=== PATIENT | male | born 1960 | race Caucasian/White ===

== ENCOUNTER 2021-06-07 20:40 | Emergency (ER) | payer MEDICAID ==
[2021-06-07] MEDS ORDERED: amLODIPine 5 MG Tab PO ONE (21:39)
[2021-06-07] MEDS ORDERED: Ondansetron 4 MG Tab.DIS PO ONE (21:59)
--- NOTE | 2021-06-07 22:05 | EDM.PDOC ---
ED HPI GENERAL MEDICAL PROBLEM - General Chief Complaint: General Stated Complaint: HIGH BP Time Seen by Provider: 06/07/21 21:09 Source of Information: Reports: Patient, Family History Limitations: Reports: No Limitations - History of Present Illness INITIAL COMMENTS - FREE TEXT/NARRATIVE: Is a 60-year-old male presenting to the ED with concerns of increased blood pressure, dizziness, headache, nausea and vomiting. The patient was in his usual state of health but today was feeling little more dizzy. He has been having episodes of dizziness on and off for last several weeks. He really has not had much in the way of an appetite but his gave him some pretzels to eat before taking his nighttime medicines. They checked his blood pressure and found it to be elevated prompting him to come in for evaluation. Patient does report that he drank a fair amount of rum last night but denies any alcohol today. He normally is seen at the [facility] by Bucky Grossman MD. He takes metoprolol XR 25 mg daily and lisinopril 10 mg twice daily. He previously been on Zestoretic 10/12.5 mg twice daily. He has developed a cough since being on the lisinopril. He states that since November he has numbers have been running really well, but his mentions that over the last several weeks he has had increasing episodes of the dizziness. He states that he is very active bicycling every day. He does recall when they were previously trying to treat his blood pressure and he was on a lot of different medications that he could barely get off the couch. He denies any fever, chills, cough or shortness of breath, constipation or diarrhea. - Related Data Allergies Allergy/AdvReac Type Severity Reaction Status Date / Time No Known Allergies Allergy Verified 05/12/15 20:10 Home Meds: Home Meds Aspirin [[place] Aspirin] 81 mg PO BEDTIME 06/07/21 [History] Metoprolol Succinate [Toprol XL] 25 mg PO DAILY 06/07/21 [History] amLODIPine [Norvasc] 10 mg PO DAILY 30 Days #60 tab 06/07/21 [Rx] atorvaSTATin [Lipitor] 40 mg PO BEDTIME 06/07/21 [History] lisinopriL [Lisinopril] 10 mg PO BID 06/07/21 [History] Labetalol [Normodyne] 100 mg PO BID 30 Days #60 tab 06/08/21 [Rx] Past Medical History Cardiovascular History: Reports: Afib, CAD, High Cholesterol, Hypertension, [place], Stents Other Cardiovascular History: stent placed Genitourinary History: Reports: Renal Calculus Psychiatric History: Reports: Anxiety, Depression Dermatologic History: Reports: Eczema, Psoriasis - Infectious Disease History Infectious Disease History: Reports: Chicken Pox, Mumps - Past Surgical History Cardiovascular Surgical History: Reports: Other (See Below) Other Cardiovascular Surgeries/Procedures: stents Social & Family History - Tobacco Use Tobacco Use Status *Q: Never Tobacco User - Alcohol Use Date of Last Drink: 06/06/21 ED ROS GENERAL - Review of Systems Review Of Systems: See Below Constitutional: Reports: Diaphoresis, Decreased Appetite HEENT: Reports: No Symptoms Respiratory: Reports: No Symptoms Cardiovascular: Reports: No Symptoms Endocrine: Reports: No Symptoms GI/Abdominal: Reports: Nausea, Vomiting Musculoskeletal: Reports: No Symptoms Skin: Reports: No Symptoms Neurological: Reports: Headache, Tremors Psychiatric: Reports: Anxiety Hematologic/Lymphatic: Reports: No Symptoms Immunologic: Reports: No Symptoms ED EXAM, GENERAL - Physical Exam Exam: See Below Exam Limited By: No Limitations General Appearance: Alert, Anxious, Mild Distress Eye Exam: Bilateral Eye: EOMI, PERRL Throat/Mouth: Normal Inspection, Normal Lips, Normal Oropharynx, Normal Voice, No Airway Compromise Head: Atraumatic, Normocephalic Neck: Normal Inspection, Supple, Non-Tender, Full Range of Motion. No: Carotid Bruit, Lymphadenopathy (R), Lymphadenopathy (L), Tender Lateral, Tender Midline Respiratory/Chest: No Respiratory Distress, Lungs Clear, Normal Breath Sounds Cardiovascular: Normal Peripheral Pulses, Regular Rate, Rhythm, No Murmur, Tachycardia Peripheral Pulses: 2+: Radial (L), Radial (R), Posterior Tibial (L), Posterior Tibial (R) GI/Abdominal: Normal Bowel Sounds, Soft, Non-Tender Back Exam: Normal Inspection, Full Range of Motion Extremities: Normal Inspection, Normal Range of Motion, Normal Capillary Refill Neurological: Alert, Oriented, Normal Cognition, No Motor/Sensory Deficits Psychiatric: Normal Affect Skin Exam: Warm, Dry Lymphatic: No Adenopathy Course - Vital Signs Last Recorded V/S: Last Vital Signs Temp 36.5 C 06/07/21 21:31 Pulse 82 06/08/21 00:07 Resp 18 06/07/21 21:31 BP 153/95 H 06/08/21 00:30 Pulse Ox 96 06/07/21 22:42 - Orders/Labs/Meds Labs: Laboratory Tests 06/07/21 06/07/21 06/07/21 Range/Units 21:51 21:51 21:56 WBC 5.9 (4.5-11.0) K/uL RBC 4.56 (4.30-5.90) M/uL Hgb 14.5 (12.0-15.0) g/dL Hct 44.6 (40.0-54.0) % MCV 98 (80-98) fL MCH 32 H (27-31) pg MCHC 33 (32-36) % Plt Count 145 L (150-400) K/uL Neut % (Auto) 68.5 H (36-66) % Lymph % (Auto) 14.4 L (24-44) % Gordon % (Auto) 16.3 H (2-6) % Eos % (Auto) 0.5 L (2-4) % Baso % (Auto) 0.3 (0-1) % Sodium 136 L (140-148) mmol/L Potassium 4.7 (3.6-5.2) mmol/L Chloride 98 L (100-108) mmol/L Carbon Dioxide 23 (21-32) mmol/L Anion Gap 19.7 H (5.0-14.0) mmol/L BUN 9 (7-18) mg/dL Creatinine 1.3 (0.8-1.3) mg/dL Est Cr Clr Drug Dosing 52.56 mL/min Estimated GFR (MDRD) 56 L (>60) Glucose 95 (74-106) mg/dL Calcium 9.7 (8.5-10.1) mg/dL Total Bilirubin 0.6 (0.2-1.0) mg/dL AST 115 H D (15-37) U/L ALT 89 H (12-78) U/L Alkaline Phosphatase 100 (46-116) U/L Total Protein 8.0 (6.4-8.2) g/dL Albumin 4.0 (3.4-5.0) g/dL Globulin 4.0 H (2.3-3.5) g/dL Albumin/Globulin Ratio 1.0 L (1.2-2.2) TSH, Ultra Sensitive 1.876 (0.358-3.740) uIU/mL Urine Color Yellow (YELLOW) Urine Appearance Clear (CLEAR) Urine pH 5.0 (5.0-8.0) Ur Specific Taylor >= 1.030 (1.008-1.030) Urine Protein 30 H (NEGATIVE) mg/dL Urine Glucose (UA) Negative (NEGATIVE) mg/dL Urine Ketones 15 H (NEGATIVE) mg/dL Urine Occult Blood Negative (NEGATIVE) Urine Nitrite Negative (NEGATIVE) Urine Bilirubin Negative (NEGATIVE) Urine Urobilinogen 0.2 (0.2-1.0) EU/dL Ur Leukocyte Esterase Negative (NEGATIVE) Meds: Medications Discontinued Medications Generic Name Dose Route Start Last Admin Trade Name Freq PRN Reason Stop Dose Admin Amlodipine Besylate 10 mg 06/07/21 21:39 06/07/21 22:11 Amlodipine 5 Mg Tab PO 06/07/21 21:40 10 mg ONETIME ONE Administration Famotidine 20 mg 06/07/21 23:56 06/08/21 00:03 Famotidine 20 Mg Tab PO 06/07/21 23:57 20 mg ONETIME ONE Administration Labetalol HCl 100 mg 06/07/21 23:58 06/08/21 00:07 Labetalol 100 Mg Tab PO 06/07/21 23:59 100 mg ONETIME ONE Administration Lorazepam 1 mg 06/08/21 00:31 06/08/21 00:39 Lorazepam 1 Mg Tab PO 06/08/21 00:32 1 mg ONETIME ONE Administration Ondansetron HCl 4 mg 06/07/21 21:59 06/07/21 22:11 Ondansetron 4 Mg Tab.Dis PO 06/07/21 22:00 4 mg ONETIME ONE Administration Departure - Departure Time of Disposition: 01:03 Disposition: Home, Self-Care 01 Clinical Impression: Essential hypertension, Generalized anxiety disorder - Discharge Information Prescriptions: Labetalol [Normodyne] 100 mg PO BID 30 Days #60 tab amLODIPine [Norvasc] 10 mg PO DAILY 30 Days #60 tab Instructions: Hypertension, Adult, [id number] Referrals: Bucky Grossman MD [Primary Care Provider] - Forms: ED Department Discharge Care Plan Goals: I am adding to your metoprolol and lisinopril a new medication called labetalol 100 mg. Please take this tablet twice daily. I had like you to monitor your blood pressure no more than twice daily and keep a log. Please follow-up with Dr. Grossman in 2 weeks to review your blood pressure. If you have symptoms relating to your blood pressure including dizziness, headache, vision changes, chest or back pain, please return to the ED for reevaluation. The goal for your blood pressure is to get you under 135/80. Sepsis Event Note (ED) - Evaluation Sepsis Screening Result: No Definite Risk - Focused Exam Vital Signs: Vital Signs Temp Pulse Pulse Resp BP BP Pulse Ox 06/08/21 00:30 153/95 H 06/08/21 00:07 82 158/98 H 06/08/21 00:04 158/98 H 06/07/21 22:42 70 147/88 H 96 06/07/21 22:13 78 169/97 H 06/07/21 22:11 169/97 H 06/07/21 21:46 75 171/100 H 97 06/07/21 21:31 36.5 C 79 18 186/114 H 95 06/07/21 21:30 80 17 165/99 H 98 06/07/21 21:05 36.5 C 79 18 186/114 H 95 - Problem List & Annotations (1) Essential hypertension SNOMED Code(s): 97081230 Code(s): I10 - ESSENTIAL (PRIMARY) HYPERTENSION Status: Acute Priority: High Current Visit: Yes (2) Generalized anxiety disorder SNOMED Code(s): 04366424 Code(s): F41.1 - GENERALIZED ANXIETY DISORDER Status: Acute Priority: Medium Current Visit: Yes - Problem List Review Problem List Initiated/Reviewed/Updated: Yes
[2021-06-07] MEDS ORDERED: Famotidine 20 MG Tab PO ONE (23:56)
[2021-06-07] MEDS ORDERED: Labetalol 100 MG Tab PO ONE (23:58)
[2021-06-08 00:08] VITALS: PULSE 82
[2021-06-08 00:31] VITALS: BP 153/95
[2021-06-08] MEDS ORDERED: LORazepam 1 MG Tab PO ONE (00:31)
== END 2021-06-08 01:17 | disposition home or self-care (01) ==
LOC: JP.ED 20:40
DX: R07.9 Chest pain, unspecified (principal)
CPT/HCPCS: 36415; 80053; 81003; 84443; 85025; 99284; A9270

== ENCOUNTER 2024-09-07 18:17 | Emergency (ER) | payer OTHER, MEDICAID ==
[2024-09-07 18:32] VITALS: BP 114/74; PULSE 68
== END 2024-09-07 20:17 | disposition home or self-care (01) ==
LOC: JP.ED 18:17
DX: S42.211A Unspecified displaced fracture of surgical neck of right humerus, initial encounter for closed fracture (principal); S42.251A Displaced fracture of greater tuberosity of right humerus, initial encounter for closed fracture; I10 Essential (primary) hypertension; Z79.899 Other long term (current) drug therapy; V27.09XA Other motorcycle driver injured in collision with fixed or stationary object in nontraffic accident, initial encounter
CPT/HCPCS: 70450; 73030-RT; 99284

== ENCOUNTER 2025-07-24 17:44 | Emergency (ER) | payer OTHER, MEDICARE ==
[2025-07-24 18:17] VITALS: BP 176/95; PULSE 88
[2025-07-24 19:21] LABS: BASOPHILS ABSOLUTE AUTO 0.06 K/uL (0.00-0.10); BASOPHILS PERCENT AUTO 1.0 % (0.1-1.3); EOSINOPHILS ABSOLUTE AUTO 0.06 K/uL (0.00-0.40); EOSINOPHILS PERCENT AUTO 1.0 % (0.0-5.4); IMMATURE GRAN ABSOLUTE AUTO 0.03 K/uL (0.00-0.23); IMMATURE GRAN PERCENT AUTO 0.5 % (0.0-0.7); LYMPHOCYTES ABSOLUTE AUTO 0.86 K/uL (0.8-3.3); LYMPHOCYTES PERCENT AUTO 13.8 % (11.4-47.7); MONOCYTES ABSOLUTE AUTO 0.84 K/uL (0.20-0.90); MONOCYTES PERCENT AUTO 13.5 % (3.3-12.6); NEUTROPHILS ABSOLUTE AUTO 4.39 K/uL (1.0-7.6); NEUTROPHILS PERCENT AUTO 70.2 % (40.0-78.1); PLATELET COUNT,PLT 155 K/uL (130-375); RED BLOOD CELL COUNT 3.95 M/uL (4.14-5.76); WHITE BLOOD CELL COUNT,WBC 6.2 K/uL (3.2-11.0)
[2025-07-24 19:26] LABS: BLOOD UREA NITROGEN,BUN 9.0 mg/dL (7-18); CARBON DIOXIDE,CO2 23.0 mmol/L (21-32); CHLORIDE,CL 95.0 mmol/L (100-108); CREATININE 1.0 mg/dL (0.8-1.3); EST CRCL DRUG DOSING (CG) 64.92 mL/min; ESTIMATED GFR 84.0 mL/min (>60); GLUCOSE RANDOM 115.0 mg/dL (74-106); POTASSIUM,K 5.2 mmol/L (3.6-5.2); SODIUM,NA 131.0 mmol/L (140-148)
[2025-07-24] MEDS: Iopamidol 612 MG/ML 100 ML Bottle IV SCH (19:50)
[2025-07-24] MEDS: Ketorolac 30 MG/ML SDV IVPUSH ONE (20:00)
== END 2025-07-24 21:06 | disposition home or self-care (01) ==
LOC: JP.ED 17:44
DX: S42.022A Displaced fracture of shaft of left clavicle, initial encounter for closed fracture (principal); I10 Essential (primary) hypertension; Z79.899 Other long term (current) drug therapy; V49.49XA Driver injured in collision with other motor vehicles in traffic accident, initial encounter
CPT/HCPCS: 36415; 70450; 71260; 72125; 73030; 76377; 80048; 80307; 85025; 96360; 99284; 99285; J7030; Q9967